=== PATIENT | female | born 1950 | race Caucasian/White ===

== ENCOUNTER 2020-08-17 08:51 | Emergency (ER) | payer MEDICARE, OTHER, SELFPAY ==
--- NOTE | 2020-08-17 08:59 | ED_ITS ---
HPI - CPR General Chief Complaint: Cardiac Arrest/CPR Stated Complaint: code/covid Time Seen by Provider: 08/17/20 08:57 Source: EMS Mode of arrival: EMS Limitations: altered mental status History of Present Illness HPI narrative: A 70-year-old female was brought in via EMS as a cardiac arrest. Per EMS the patient had been down for approximately 30 to 60 minutes per her . Reportedly the found the patient on the floor not wanting to move and somewhat lethargic. He went to go call for help. When he came back to her she apparently was not breathing. The started CPR. EMS note that when they arrived on scene she was asystole they did start CPR. They were on scene approximately 15 to 17 minutes. In route some point the patient did go into V. fib. She was given amiodarone as well as 6 epi's in total before arriving in the ED. Review of Systems Review of Systems: ROS unobtainable: Yes unobtainable due to medical condition Exam Narrative: Exam Narrative: GENERAL: Distressed, cyanotic. HEAD: Facial jaundice seen. EYES: Sclera icteric. ENT: ET tube in oropharynx NECK: Supple. No adenopathy or masses. No carotid bruits or JVD CHEST: Angel device attached active compressions HEART: Pulseless. ABDOMEN: Distended, protuberant abdomen. Jaundice seen to approximately the umbilicus. EXTREMITIES: Mottled. SKIN: Cool/mottled. NEURO: Unresponsive. PSYCH: Unresponsive. Course Course Emergency Course: On arrival to the ED the patient did receive another round of epinephrine immediately. This was followed by sodium bicarbonate and amiodarone. Patient was also given calcium as we did not have any medical history on her. Patient was given 2 more rounds of epi. After approximately 10 minutes of CPR patient did not achieve ROSC. I did perform a bedside cardiac ultrasound. There was no cardiac motion seen. Time of was called at 085 7. MDM - Cardiac Arrest/CPR MDM Narrative Medical decision making narrative: In brief this poor 70-year-old woman who comes in as a cardiac arrest. She had been down unknown time between 30 and 60 minutes before EMS arrival. EMS started CPR and ACLS protocol at scene. For the most part the patient was asystole with a brief moment of V. fib. Patient was shocked and returned to asystole. Patient has been asystole during the entire time in the emergency department. Bedside ultrasound did confirm no cardiac motion. When this was seen time of was called at 0857. Critical Care Time Critical Care Time Critical Care Time: Yes Total Critical Care Time: 35 (Including Medic commands for EMS, speaking with family as well as assessing and treating the patient.) Discharge Plan Discharge Clinical Impression: Cardiac arrest Acute respiratory failure Qualifiers: Respiratory failure complication: hypoxia and hypercapnia Qualified Code(s): J96.01 - Acute respiratory failure with hypoxia Patient Disposition: Condition:
--- NOTE | 2020-08-17 09:05 | PC.NURSE ---
meeting facilitator Todd contacted
--- NOTE | 2020-08-17 09:32 | PC.NURSE ---
[facility] contacted
--- NOTE | 2020-08-17 09:45 | PC.NURSE ---
pts pmd dr. Mancini contacted
--- NOTE | 2020-08-17 10:01 | PC.NURSE ---
pt is released from [facility]
== END 2020-08-17 12:12 | disposition expired ==
LOC: ANHED 09:39
PROVIDERS: Emergency Provider Emergency Medicine
DX: I46.9 Cardiac arrest, cause unspecified (principal); J96.01 Acute respiratory failure with hypoxia
CPT/HCPCS: 92950; 99285; J0171; J0282